=== PATIENT | male | born 1975 | race Two or more races ===

== ENCOUNTER 2021-01-20 01:06 | Emergency (ER) | payer MEDICAID ==
[~2021-01-20] VITALS: Ht 170.2 cm; Wt 83.2 kg
[~2021-01-20 01:06] MED LIST: CLIN-97 PO
[2021-01-20] MEDS ORDERED: LIDOcaine 1% 30ml preserv. free vial IJ ONE (02:45)
[2021-01-20] MEDS ORDERED: TETanus/Pertussis (Acell)/Diphther VAC/PF (Tdap-Adult) 0.5ml syringe IMVAC ONE (03:25)
[2021-01-20] MEDS ORDERED: HYDR-3965 PO (04:02)
[2021-01-20 04:30] VITALS: BP 121/86
== END 2021-01-20 04:31 | disposition home or self-care (01) ==
LOC: ER 01:07
DX: S90.212A Contusion of left great toe with damage to nail, initial encounter (principal); M79.645 Pain in left finger(s); Z20.3 Contact with and (suspected) exposure to rabies; Z98.890 Other specified postprocedural states; Z79.2 Long term (current) use of antibiotics
CPT/HCPCS: 11740; 73660; 90471; 90715; 99284